=== PATIENT | female | born 1950 | race Caucasian/White ===

== ENCOUNTER 2017-06-15 08:08 | Inpatient (IN) | payer OTHER ==
[2017-05-24 10:33] VITALS: BMI 33.0
--- NOTE | 2017-05-24 11:14 | PAT Medication Instructions ---
Service Date May 24, 2017. Current Home Medication List Rgrypgm-Ibshafqhm-Anwm (Calcium Magnesium & Zinc), 2 TAB PO QAM Cholecalciferol (Vitamin D3), 1 TAB PO QAM Dicyclomine Hcl (Dicyclomine Hcl), 1 TAB PO BID PRN for PRN Diltiazem Hcl Ext Rel (Tiazac), 240 MG PO QPM Fish Oil (Angier-3), 1 CAP PO QAM Ibuprofen (Motrin), 400 MG PO TID PRN for Pain Lorazepam (Ativan), 1 MG PO TID PRN for Anxiety Losartan Potassium (Cozaar), 50 MG PO QAM Meloxicam (Mobic), 15 MG PO QAM Multivitamin (Multivitamin), 1 TAB PO QAM Omeprazole (Prilosec), 20 MG PO QAM Ospemifene (Osphena), 60 MG PO QAM Simvastatin (Zocor), 10 MG PO QPM Sumatriptan Succinate (Imitrex), 50 MG PO PRN PRN for Migraine Medication Instructions For Your Scheduled Surgery - Check with surgeon for instructions: Meloxicam (Mobic), 15 MG PO QAM Ibuprofen (Motrin), 400 MG PO TID PRN for Pain - Hold the following medications 2 weeks prior to surgery: Fish Oil (Angier-3), 1 CAP PO QAM - Hold the following medications the morning of surgery: Crqgrin-Zrxztfupd-Hrsr (Calcium Magnesium & Zinc), 2 TAB PO QAM Cholecalciferol (Vitamin D3), 1 TAB PO QAM Dicyclomine Hcl (Dicyclomine Hcl), 1 TAB PO BID PRN for PRN Losartan Potassium (Cozaar), 50 MG PO QAM Multivitamin (Multivitamin), 1 TAB PO QAM Ospemifene (Osphena), 60 MG PO QAM - Take the following medications the morning of surgery with a sip of water: Sumatriptan Succinate (Imitrex), 50 MG PO PRN PRN for Migraine (if needed) Omeprazole (Prilosec), 20 MG PO QAM Lorazepam (Ativan), 1 MG PO TID PRN for Anxiety (if needed) - Take the following medications as scheduled the night before surgery: Sumatriptan Succinate (Imitrex), 50 MG PO PRN PRN for Migraine (if needed) Simvastatin (Zocor), 10 MG PO QPM Lorazepam (Ativan), 1 MG PO TID PRN for Anxiety (if needed) Diltiazem Hcl Ext Rel (Tiazac), 240 MG PO QPM Dicyclomine Hcl (Dicyclomine Hcl), 1 TAB PO BID PRN for PRN (if needed) If you have any questions please call us at [phone] or [phone] or [phone]
[2017-05-24 11:39] LABS: BASO % 0.3 %; BASO ABS # 0.03 K/uL (0-0.2); EOS % 2.3 %; EOS ABS # 0.21 K/uL (0-0.5); IG# 0.02 K/uL (0.00-0.02); LYMPH % 34.7 %; LYMPH ABS # 3.11 K/uL (1.2-3.4); MEAN CELL VOLUME 93.4 fL (80-100); MEAN CORPUSCULAR HEMOGLOBIN 31.9 pg (25-34); MEAN CORPUSCULAR HGB CONC 34.1 g/dl (32-36); MEAN PLATELET VOLUME 9.6 fL (7.4-10.4); MONO ABS # 0.63 K/uL (0.11-0.59); NEUT % 55.5 %; NEUT ABS # 4.95 K/uL (1.4-6.5); PLATELET COUNT 327 K/uL (130-400); RED CELL DISTRIBUTION WIDTH CV 12.9 % (11.5-14.5); RED CELL DISTRIBUTION WIDTH SD 44.1 fL (36.4-46.3); WHITE BLOOD COUNT 8.95 K/uL (4.8-10.8)
[2017-05-24 11:46] LABS: INR 0.9 (0.9-1.1); PTT PATIENT 24.5 SECONDS (21.0-31.0)
--- NOTE | 2017-05-24 11:48 | DIAGNOSTIC IMAGING REPORT ---
CHEST 2 VIEWS ROUTINE CLINICAL HISTORY: Preoperative chest COMPARISON STUDY: No previous studies for comparison. FINDINGS: There is a thoracolumbar scoliosis. The heart is normal in size. There is tortuosity/ectasia of the ascending thoracic aorta. There is a retrocardiac opacity consistent with a hiatal hernia. There is no failure. There is no focal pulmonary consolidation. There are no pleural effusions.[ IMPRESSION: 1. No acute findings 2. Hiatal hernia 3. Tortuosity/ectasia of the ascending thoracic aorta Electronically signed by: Shawn Encarnacion M.D. 05/24/2017 11:46 AM Dictated Date/Time: 05/24/2017 11:46 AM
[2017-05-24 14:10] LABS: BLOOD UREA NITROGEN 16 mg/dl (7-18); CALCIUM 9.4 mg/dl (8.5-10.1); CARBON DIOXIDE 25 mmol/L (21-32); GLUCOSE 89 mg/dl (70-99); POTASSIUM 4.1 mmol/L (3.5-5.1); SODIUM 136 mmol/L (136-145)
--- NOTE | 2017-06-11 08:09 | HISTORY & PHYSICAL EXAMINATION ---
DATE OF ADMISSION: 06/15/2017 CHIEF COMPLAINT: Right knee pain. HISTORY OF PRESENT ILLNESS: The patient is a 66-year-old white female from [place] who presents for surgical treatment of her right knee. She got a long history of knee problems and her left knee replaced by Dr. Pop in 2010. Never really did great from that. She continues to be bothered by right knee pain and discomfort. She has global pain. It is really starting to limit her activities. She was planning on doing anything but feels like she cannot get around at all with the knee that she has. She cannot walk any significant distances. She has difficulty going up and down steps. She has been through extensive conservative treatment including injections and would like to proceed with surgical treatment. PAST MEDICAL HISTORY: 1. Hypertension. 2. Elevated cholesterol. 3. Sleep apnea with CPAP machine. 4. Anxiety/depression. 5. Obesity with BMI of 33. 6. Gastroesophageal reflux disease. 7. Low back pain/sciatica. PAST SURGICAL HISTORY: Include: 1. Removal of birthmark. 2. Tubal ligation. 3. Umbilical hernia repair. 4. Oophorectomy. 5. Left total knee replacement done in 2010. 6. Mohs surgery for basal cell skin cancer. ALLERGIES: ERYTHROMYCIN. CURRENT MEDICINES: Include: 1. Omeprazole 20 mg a day. 2. Losartan 50 mg a day. 3. Meloxicam 15 mg a day. 4. Osphena 60 mg for her hormone issues. 5. Multivitamin once a day. 6. Calcium. 7. Vitamin D3. 8. Fish oil. 9. [place] 3. 10. Diltiazem HCL ER 240 mg at bedtime. 11. Simvastatin 10 mg at night. 12. Lorazepam 1 mg 3 times a day. 13. Dicyclomine 20 mg twice a day. 14. Imitrex 50 mg p.r.n. 15. Benadryl p.r.n. 16. Ibuprofen p.r.n. 17. Calcium carbonate p.r.n. SOCIAL HISTORY: Significant for a 66-year-old female. She lives in [place]. She is . Does not smoke. FAMILY HISTORY: Noncontributory. REVIEW OF SYSTEMS: Negative for diabetes, neurologic problems, vascular problems, bleeding disorders. Denies any chest pain or shortness of breath. No history of DVT or PE. No known bleeding problems. PHYSICAL EXAMINATION: GENERAL: Reveals a healthy, pleasant middle-aged female. Looks to be in reasonably good health. HEENT: Benign. NECK: Supple. No lymphadenopathy. LUNGS: Clear to auscultation. HEART: Regular rate and rhythm. ABDOMEN: Soft, nontender, nondistended. EXTREMITIES: Grossly neurovascularly intact except as follows: Examination of the right knee reveals slight valgus alignment. Small knee effusion. Range of motion is 0-120. She does have significant patellofemoral crepitus. X-RAYS: X-rays of the right knee reviewed. It shows advanced tricompartmental DJD. She has tibial femoral subluxation. She has advanced patellofemoral arthritis with a significant patellar maltracking. There are no signs of left knee problems. ASSESSMENT: A 66-year-old female status post left knee replacement 6 years ago with persistent right knee pain, discomfort and disability. Unfortunately, she did not have a good experience with her left knee but has become more and more debilitated by right knee and would like to have it fixed. PLAN: We will take her to the operating room and do a right total knee replacement. The risks and benefits of this procedure were explained to the patient including but not limited to DVT, PE, , infection, neurological injury, vascular injury, bleeding problem, pain, limited range of motion, stiffness, failure to her relieve symptoms, incomplete relief of symptoms, need for further surgery in the future, fracture, leg length inequality, nerve palsy, persistent pain, etc. The patient understands and desires to proceed. Informed consent was obtained. She has a very difficult knee with significant patellofemoral maltracking which will be difficult to correct. We talked about the results and certainly there is no guarantee that this is going to take away all of her pain. She understands and would like to proceed. As far as discharge plans, she is planning to be discharged to home using the [facility] home health program. She will bring her CPAP machine to the hospital. She stopped her NSAIDs 2 weeks preop.
[2017-06-15] VITALS (8 sets, daily range): BP systolic 106–140; BP diastolic 60–91; PULSE 71–103; TEMP 36.5–36.8; O2SAT 94–98; Ht 157.5 cm; Wt 82.1 kg
[~2017-06-15] VITALS: Ht 157.5 cm; Wt 82.1 kg
[~2017-06-15 08:08] MED LIST: ACETAMINOPHEN 500 MG TAB PO SCH; ATROPINE SULFATE 0.1 MG/ML 5ML SYR IV PRN; ATV/1 PO; BUPIVACAINE 0.5 % 5 MG/1 ML PF 10ML VIAL ONE; BUPIVACAINE LIPOSOME 266 MG, BUPIVACAINE/EPINEPHRINE INJ 50 ML, SODIUM CHLORIDE 0.9% PF... INFIL SCH; CALC1TAB27 PO; CEFAZOLIN 2000MG IV PUSH 10 ML IV SCH; CHOL1000 PO; DICY20TA10 PO; DILT-115 PO; EpHEDrine SULFATE INJ 50 MG/ML AMP IV PRN; FAMOTIDINE 20 MG TAB PO SCH; GABAPENTIN 300 MG CAP PO SCH; HYDROmorphone INJ 2 MG/ML SYR/VIAL IV PRN; IBUP-1459 PO; LACTATED RINGER'S 1000ML 1,000 ML IV SCH; LACTATED RINGER'S 1000ML 500 ML IV SCH; LACTATED RINGER'S 1000ML IV SCH; LOSA50TA6 PO; MELO7.5T5 PO; METOCLOPRAMIDE HCL 10 MG TAB PO SCH; MULT-506 PO; OMEG10007 PO; ONDANSETRON INJ 2 MG/ML 2 ML VIAL IV PRN; OSPE1TAB2 PO; PHENYLEPHRINE 100MCG/ML 5ML SYR IV PRN; PRLSR20 PO; ROPIVACAINE 0.5% 5 MG/ML 30 ML VIAL ONE; SIMV10TA2 PO; SUMA50TA15 PO; TRANEXAMIC ACID INJ 1,000 MG in SYRINGE 0 ML IV SCH
--- NOTE | 2017-06-15 08:45 | History & Physical Bridge Note ---
H&P Re-Evaluation Bridge Note: I have examined the patient, reviewed the History & Physical and in the interval since the performance of the History & Physical I have noted the following changes of clinical significance: No changes noted
[2017-06-15] MEDS ORDERED: MIDAZOLAM HCL 1 MG/ML 2ML VIAL ONE ×3 (09:30→11:56)
[2017-06-15] MEDS ORDERED: BUPIVACAINE/EPINEPHRINE 0.25% 1:200,000 30 ML VIAL ONE (10:57)
[2017-06-15] MEDS ORDERED: SODIUM CHLORIDE 0.9% PF 50 ML VIAL ONE (10:57)
[2017-06-15] MEDS ORDERED: BUPIVACAINE LIPOSOME 1/3% 266 MG/20 ML VIAL INFIL ONE (10:57)
[2017-06-15] MEDS ORDERED: BACITRACIN 50000 UNIT VIAL ONE (10:57)
[2017-06-15] MEDS ORDERED: PROPOFOL IV EMULSION 10 MG/ML 20 ML VIAL IV ONE ×2 (11:20→12:25)
[2017-06-15] MEDS ORDERED: LIDOCAINE HCL 2% 2 ML VIAL (20MG/ML) ONE (11:20)
[2017-06-15] MEDS ORDERED: PHENYLEPHRINE 100MCG/ML 5ML SYR ONE (12:06)
--- NOTE | 2017-06-15 12:43 | [facility] Post Operative Brief Note ---
Immediate Operative Summary Operative Date Jun 15, 2017. Pre-Operative Diagnosis Right Knee Degenerative Joint disease Post-Operative Diagnosis Same as preop Procedure(s) Performed Right Total Knee Arthroplasty Surgeon Dr. Calvo Harness Installer Surgeon(s) David Baca PA-C Estimated Blood Loss 50 ml Findings Consistent with Post-Op Diagnosis Fluids (cc crystalloids) 1500 cc Specimens A. Right Knee Bone and Tissue Drains None Anesthesia Type MAC Spinal Regional Complication(s) none Disposition Accompanied Pt To Recover: no Disposition: Recovery Room / PACU
[2017-06-15] MEDS ORDERED: DICYCLOMINE HCL 20 MG TAB PO PRN (12:45)
[2017-06-15] MEDS ORDERED: SUMATRIPTAN SUCCINATE 50 MG TAB PO PRN (12:45)
[2017-06-15] MEDS ORDERED: HYDROmorphone INJ 0.5 MG/0.5 ML SYR IV PRN (12:45)
[2017-06-15] MEDS ORDERED: ONDANSETRON INJ 2 MG/ML 2 ML VIAL IV PRN (12:45)
[2017-06-15] MEDS ORDERED: ALUMINUM/MAGNESIUM/SIMETH (MAALOX MAX) 30 ML UDC PO PRN (12:45)
[2017-06-15] MEDS ORDERED: METOCLOPRAMIDE HCL INJ 5 MG/ML 2 ML VIAL IV PRN (12:45)
[2017-06-15] MEDS ORDERED: SILVER SULFADIAZINE 1% CR 50 GM JAR EXT PRN (12:45)
[2017-06-15] MEDS ORDERED: BISACODYL 10 MG SUPP PR PRN (12:45)
[2017-06-15] MEDS ORDERED: DiphenhydrAMINE HCL 50 MG/ML VIAL IV PRN (12:45)
[2017-06-15] MEDS ORDERED: MAGNESIUM HYDROXIDE SUSP 30 ML UDC PO PRN (12:45)
[2017-06-15] MEDS ORDERED: CEFAZOLIN IV 2,000 MG in DEXTROSE 5% 50ML 50 ML IV SCH (12:45)
[2017-06-15] MEDS ORDERED: ZOLPIDEM TARTRATE 5 MG TAB PO PRN (12:45)
--- NOTE | 2017-06-15 13:26 | DIAGNOSTIC IMAGING REPORT ---
RIGHT KNEE 2 VIEWS History: Right total knee arthroplasty. Degenerative arthritis. Postop. FINDINGS: The patient is status post a right total knee arthroplasty. The hardware is intact. No fracture or dislocation. Skin fifi are in place. IMPRESSION: Right total knee arthroplasty. No evidence for hardware complication. Electronically signed by: Naman Roblero M.D. 06/15/2017 1:24 PM Dictated Date/Time: 06/15/2017 1:23 PM
--- NOTE | 2017-06-15 14:06 | Anesthesiology Progress Note ---
Anesthesia Post Op Note Date & Time Jun 15, 2017 at 14:06 Vital Signs Pain Intensity: 0 Vital Signs Past 12 Hours Date Time Temp Pulse Resp B/P (MAP) Pulse Ox O2 Delivery O2 Flow Rate FiO2 06/15/17 13:30 36.5 82 16 116/77 (90) 98 Nasal Cannula 2.0 06/15/17 13:30 Nasal Cannula 2.0 06/15/17 13:10 36.8 81 16 133/79 99 Nasal Cannula 2 06/15/17 13:00 80 18 114/61 100 Nasal Cannula 2 06/15/17 12:50 36.8 86 20 103/59 99 Nasal Cannula 2 06/15/17 08:40 36.8 103 20 123/81 97 Room Air Notes Mental Status: alert / awake / arousable, participated in evaluation Pt Amnestic to Procedure: Yes Nausea / Vomiting: adequately controlled Pain: adequately controlled Airway Patency, RR, SpO2: stable & adequate BP & HR: stable & adequate Hydration State: stable & adequate Anesthetic Complications: no major complications apparent
--- NOTE | 2017-06-15 15:19 | PROGRESS NOTE ---
DATE: 06/15/2017 SUBJECTIVE: A 66-year-old white female postop from a right knee replacement. She is doing pretty well. Feels a little bit groggy and tired but pain is controlled. No chest pain or shortness of breath. Not feeling dizzy or lightheaded. OBJECTIVE: VITAL SIGNS: Temperature 36.5. Vital signs stable. GENERAL: Reveals a healthy pleasant middle-aged female. She is lying in bed, looks pretty comfortable. She is awake, alert and oriented. LUNGS: Clear to auscultation. HEART: Has a regular rate and rhythm. ABDOMEN: Soft, nontender, nondistended. EXTREMITIES: Grossly neurovascularly intact except as follows. Examination of the right leg reveals the leg to be well aligned. Dressing is clean, dry and intact. She can dorsiflex and plantarflex her foot and toes appropriately. She is neurologically intact. X-RAYS: X-rays of the right knee from recovery room were reviewed. It shows a right cemented posterior stabilized total knee arthroplasty. Components looked to be in good position. No signs of problems. ASSESSMENT: A 66-year-old female postop from a right knee replacement, doing well. Pain is controlled. She is neurologically intact. PLAN: 1. DVT prophylaxis including thigh high TEDs, SCDs, and aspirin twice a day. 2. PT, OT. Weightbearing as tolerated. Right total knee protocol. 3. Pain control, doing pretty well with current pain regimen. 4. IV antibiotics x24 hours. 5. Disposition: She is planning to be discharged to home likely with some home health once adequately recovered.
[2017-06-15] MEDS: D5W AND 1/2NSS + 20MEQ KCL 1,000 ML IV SCH (16:04)
[2017-06-15] MEDS: KETOROLAC TROMETHAMINE 15 MG/ML VIAL IV. SCH ×2 (16:05→21:23)
[2017-06-15] MEDS ORDERED: NURSING VERBAL MED ORDER ONE (16:45)
[2017-06-15] MEDS: FERROUS GLUCONATE 324 MG TAB PO SCH (17:45)
[2017-06-15] MEDS: CEFAZOLIN IV 2,000 MG in SYRINGE 5 ML IV SCH (18:50)
[2017-06-15] MEDS ORDERED: TRANEXAMIC ACID INJ 1,000 MG in SODIUM CHLORIDE 0.9% 100ML 100 ML IV ONE (19:30)
[2017-06-15] MEDS: LORAZEPAM 1 MG TAB PO PRN (21:23)
[2017-06-15] MEDS: DILTIAZEM HCL 120 MG EXT REL CAP PO SCH (21:24)
[2017-06-15] MEDS: SIMVASTATIN 10 MG TAB PO SCH (21:24)
[2017-06-15] MEDS: ACETAMINOPHEN 500 MG TAB PO SCH (21:31)
[2017-06-15] MEDS: SENNA 8.6 MG TAB PO SCH (21:51)
[2017-06-15] MEDS: DOCUSATE SODIUM 100 MG CAP PO SCH (21:51)
[2017-06-15] MEDS: ASPIRIN 325 MG ECTAB PO SCH (21:52)
[2017-06-16] VITALS (8 sets, daily range): BP systolic 107–147; BP diastolic 70–84; PULSE 76–94; TEMP 36.7–36.8; O2SAT 90–96
[2017-06-16] MEDS: D5W AND 1/2NSS + 20MEQ KCL 1,000 ML IV SCH ×2 (01:55→09:23)
[2017-06-16] MEDS: CEFAZOLIN IV 2,000 MG in SYRINGE 5 ML IV SCH (03:12)
[2017-06-16] MEDS: KETOROLAC TROMETHAMINE 15 MG/ML VIAL IV. SCH ×4 (03:30→21:48)
[2017-06-16] MEDS: LORAZEPAM 1 MG TAB PO PRN (05:08)
[2017-06-16] MEDS: ACETAMINOPHEN 500 MG TAB PO SCH ×3 (06:20→21:48)
[2017-06-16 06:52] LABS: HEMATOCRIT 33.2 % (37-47); HEMOGLOBIN 11.3 g/dL (12.0-16.0); MEAN CELL VOLUME 91.7 fL (80-100); MEAN CORPUSCULAR HEMOGLOBIN 31.2 pg (25-34); MEAN PLATELET VOLUME 9.6 fL (7.4-10.4); PLATELET COUNT 256 K/uL (130-400); RED CELL DISTRIBUTION WIDTH CV 12.7 % (11.5-14.5); RED CELL DISTRIBUTION WIDTH SD 42.9 fL (36.4-46.3); WHITE BLOOD COUNT 11.14 K/uL (4.8-10.8)
[2017-06-16 07:32] LABS: CREATININE 0.56 mg/dl (0.60-1.20); POTASSIUM 3.6 mmol/L (3.5-5.1)
[2017-06-16] MEDS: FERROUS GLUCONATE 324 MG TAB PO SCH ×3 (07:48→17:45)
[2017-06-16] MEDS: DOCUSATE SODIUM 100 MG CAP PO SCH ×2 (07:48→20:32)
[2017-06-16] MEDS: CHOLECALCIFEROL 400 INTER.UNIT TAB PO SCH (07:48)
[2017-06-16] MEDS: PANTOprazole SOD 40 MG TAB PO SCH (07:49)
[2017-06-16] MEDS: ASPIRIN 325 MG ECTAB PO SCH ×2 (07:49→20:32)
[2017-06-16] MEDS: MULTIVITAMIN TAB PO SCH (07:49)
[2017-06-16] MEDS: LOSARTAN POTASSIUM 50 MG TAB PO SCH (07:49)
--- NOTE | 2017-06-16 08:02 | OPERATIVE REPORT ---
DATE OF OPERATION: 06/15/2017 SURGEON: Donell Calvo MD. SENIOR SUPPORT ENGINEER: NATHAN Prince. PREOPERATIVE DIAGNOSIS: Right knee degenerative joint disease. POSTOPERATIVE DIAGNOSIS: Same. PROCEDURE PERFORMED: Right cemented posterior stabilized total knee arthroplasty. COMPLICATIONS: None. ESTIMATED BLOOD LOSS: 50 mL FLUID REPLACEMENT: 1500 mL crystalloid fluid replacement. TOURNIQUET TIME: 51 minutes at 300 mmHg. ANESTHESIA: Spinal with adductor canal block. DRAINS: None. SPECIMENS: Right knee sent for pathology. OPERATIVE INDICATIONS: The patient is a 66-year-old fairly active female who has had a long history of knee problems. She underwent left knee replacement about 7 years or so ago and really did not do real well from that. As a result, she has been putting up with a severely arthritic right knee for many years. Pain has just become more debilitating. X-rays revealed advanced right knee DJD with severe patellofemoral arthritis and maltracking in the patella. She elected to proceed with total knee arthroplasty. OPERATIVE FINDINGS: Operative findings reveal advanced right knee DJD. She had grade 4 [id number] disease in all 3 compartments, pretty severe in all 3 compartments. She had severe patellar maltracking with subluxation, almost dislocation of the patella. She had tibial femoral subluxation. She had diffuse osteopenia. She had osteophytes in all 3 compartments. OPERATIVE IMPLANTS: Operative implants consisted of: 1. A Biomet Vanguard size 60 right posterior stabilized femoral component. 2. A Biomet size 63 tibial tray. 3. A 12 mm posterior stabilized polyethylene insert. 4. A 28 x 8 all poly patella. OPERATIVE PROCEDURE: The patient taken to the operating room, identified and placed on the operating table in supine position. All contact areas were appropriately padded. IV antibiotics were provided by anesthesia team. A spinal anesthetic and adductor canal block had been provided in the holding area. Hair catheter was placed in sterile fashion. A right thigh tourniquet was then placed. The right lower extremity was then prepped and draped in usual sterile fashion. The right leg was elevated and exsanguinated with Esmarch and tourniquet was placed at 300 mmHg. An anterior approach to the right knee was then performed through a longitudinal incision centered over the patella. Sharp dissection was carried out through the subcutaneous tissues down to the level of the extensor mechanism. A medial parapatellar arthrotomy incision was made. Some subperiosteal dissection was carried out medially. The fat pad was resected from beneath the patellar tendon. The lateral patellofemoral ligament was released. Patella was everted and the knee was flexed. The osteophytes were taken off the distal femur. ACL and PCL were then released from the distal femur and the tibia subluxated anteriorly. The external tibial alignment jig was then placed in the anterior face of the tibia and adjusted 12 mm medially. Proximal tibial cut was made to remove about 2 mm of bone from the most deficient aspect of the medial tibial plateau. The bone was pretty osteopenic. The tibia was sized to a size 63. I did want to maximize tibial coverage due to osteopenia but I also wanted to be able to externally rotate the tibial tray to maximize patellar tracking. We tried to optimize both situations. Attention was then drawn to the femur. The distal femur was entered with a sharp drill. Intramedullary canal was suctioned. A right 5-degree valgus cutting guide was placed. Distal femoral cutting block was pinned in place. Distal femoral cut was made to take an additional 3 mm bone off the distal femur. The femur was then sized to a size 60. I did downsize this slightly in hopes of being able to lateralize the femoral component. The AP cutting block was pinned parallel to the epicondylar axis which was 5 degrees of external rotation. The anterior cut, anterior chamfer cut, posterior cut, posterior chamfer cuts were made. Box cutting guide was placed and adjusted slightly lateral and the box cut was made. The knee was flexed. The remnants of the medial and lateral menisci were excised. The osteophytes were taken off the posterior aspect of the femur. I did release the popliteus in order to equalize the flexion gaps. I also did a little release of the IT band to equalize the extension gap. The knee was then trialed and the 12 mm insert fit most appropriately. Attention was then drawn to the patella. The patella was cleaned of all soft tissues. Patella was severely worn. It measured about 17 mm in thickness and was cut down to 12. I did try to medialize the patellar button and prepared its size to size 28 and downsized it slightly to maximize medialization of the patellar button. The lug holes were drilled for the 28 patella. Lateral osteophyte was removed. The knee was taken through range of motion and patella tracked with no thumbs test. There was a tendency to tilt a little bit and subluxate just slightly in terminal flexion more than anything. In extension and 30 degrees of flexion, it was well centered. We elected to avoid to do anything until the tourniquet was down. All trial components were removed. Bone plug was placed in the distal femur to limit blood loss. A double batch of Palacos G cement was mixed. A right size 60 posterior stabilized femoral component, size 63 tibial tray, 12 mm posterior stabilized polyethylene insert and a 28 x 8 all poly patella then cemented in place. Knee was brought out into full extension until cement hardened. A final cement check was performed. The pericapsular tissues were injected with 100 mL of a combination of 20 mL of Exparel, 30 mL of normal saline, 50 mL of 0.25% Marcaine with epinephrine. The patient did receive 1 gram of tranexamic acid. The tourniquet was then let down for a tourniquet time of 51 minutes. Hemostasis was assured with use of electrocautery. The patella tended to tilt and sublux slightly most when in teminal flexion than anything. I did do a lateral release several centimeters lateral to the patella, beginning at the superior pole and extending to the tibial tray. I did not do a more extensive proximal release. I elected to accept this. I felt the patella was quite stable. Attention was then drawn toward closing. The wound was irrigated with copious amounts of pulsatile lavage solution. The extensor mechanism was then closed with a combination of #1 PDS suture and #1 Vicryl suture in a [id number] fashion. Extensor mechanism was checked and found to be intact. The subcutaneous tissues were then closed with 2-0 Dexon suture in a buried interrupted fashion. Skin was closed with skin fifi. Leg was then cleaned and dried, and a sterile dressing of Xeroform, 4 x 4's, sterile cast padding and Cory bandage was applied. The patient was then transferred to the recovery room in stable condition. The patient tolerated the procedure well with no complications. All needle and sponge counts were correct at the end of the operation. I attest to the content of the Intraoperative Record and any orders documented therein. Any exceptions are noted below. CHAUNCEY
[2017-06-16] MEDS ORDERED: NON-FORMULARY MEDICATION (Omeprazole (Prilosec) 20 MG) PO SCH (09:00)
[2017-06-16] MEDS ORDERED: CALCIUM MAGNESIUM ZINC PO SCH (09:00)
[2017-06-16] MEDS ORDERED: MULTIVITAMIN TAB PO SCH (09:00)
[2017-06-16] MEDS ORDERED: ASPEC325 PO (09:17)
[2017-06-16] MEDS ORDERED: ULT50X PO (09:17)
[2017-06-16] MEDS ORDERED: ACET-24 PO (09:17)
--- NOTE | 2017-06-16 09:28 | PROGRESS NOTE ---
DATE: 06/16/2017 SUBJECTIVE: A 66-year-old white female postop day #1 from right knee replacement. She is doing pretty well. Knee is sore but manageable. No chest pain or shortness of breath. Not feeling dizzy or lightheaded. OBJECTIVE: VITAL SIGNS: Temperature is 36.7. Vital signs stable. GENERAL: Reveals a pleasant, middle-aged female. She is sitting up in her bedside chair and looks pretty comfortable. EXTREMITIES: Examination of the right leg reveals the dressing to be in place. Just a trace bit of bloody drainage. She can dorsiflex and plantarflex her foot appropriately. She is neurologically intact. LABORATORY DATA: Hemoglobin 11.3. Hematocrit 33.2. Electrolytes are stable. ASSESSMENT: A 66-year-old white female postop day #1 from right knee replacement, doing pretty well. Pain is controlled. She is neurologically intact. PLAN: 1. DVT prophylaxis including thigh-high TEDs, SCDs, and aspirin twice a day. 2. PT/OT. Weightbearing as tolerated. Right total knee protocol. 3. Pain control, doing well with current pain regimen. 4. Disposition: Plan to discharge to home once adequately recovered.
[2017-06-16] MEDS: TRAMADOL HCL 50 MG TAB PO PRN (15:05)
[2017-06-16] MEDS: SIMVASTATIN 10 MG TAB PO SCH (20:34)
[2017-06-16] MEDS: SENNA 8.6 MG TAB PO SCH (20:34)
[2017-06-16] MEDS: DILTIAZEM HCL 120 MG EXT REL CAP PO SCH (20:34)
--- NOTE | 2017-06-16 20:37 | Discharge Instructions ---
Discharge Instructions Date of Service Jun 16, 2017. Admission Reason for Admission: Right Knee Degenerative Joint Disease Discharge Discharge Diagnosis / Problem: Right Knee Replacement Discharge Goals Goal(s): Decrease discomfort, Improve function, Increase independence, Improve disease control, Therapeutic intervention Activity Recommendations Activity Limitations: per Instructions/Follow-up section Weightbearing Status: Right weightbearing . Instructions / Follow-Up Instructions / Follow-Up ACTIVITY RECOMMENDATIONS: Physical Therapy: * You will go to physical therapy three times each week for four to six weeks after your surgery in order to regain your knee range of motion and to retrain your knee to work properly. * It is just as important to make sure you are getting your knee perfectly straight as it is to regain your knee bend. * Taking a pain pill an hour before therapy can help you have a more productive and comfortable therapy session. Home Exercise: * You were shown a series of exercises (heel props, heel slides, etc.) in the hospital. Do these exercises three to four times each day including the exercises you were shown in physical therapy. Walking: * Get up and walk several times each day. For the first four weeks, try not to stand or walk for more than one hour at a time. If you do stand or walk for more than one hour, you will not hurt anything, but your knee and leg will likely swell. * As you feel comfortable, you may change from the walker or crutches to a cane and then to independent walking. MEDICATIONS: New Medicine: * You will likely be taking one or more of these medications: 1. Tramadol - A quick and shorter-acting pain medication. Take one to two tablets every four to six hours to lessen your pain. 2. Aspirin - Thins your blood to lessen the chance of forming a blood clot. * The most common side effects of pain medicine and iron are nausea and constipation. If nausea or constipation is too much of a problem or if you have any questions about your new medicines or doses, call [facility] at . We will try to help you manage these issues. VERY IMPORTANT TO READ AND REVIEW" Pain: * The immediate post-operative period after knee replacement surgery is often quite painful. * You are given a prescription for pain medicine. You should take it, as directed, when you need it, especially before physical therapy and before going to bed. Pain that interferes with sleep is very common and can last several months. * You will likely need pain medicine for the first four to six weeks. It will not stop all of the pain. The pain will lessen and as you feel better, you may change to milder pain medicine such as Tylenol. * The most common side effects of pain medicine are nausea and constipation, so don't take more than you need. SPECIAL CARE INSTRUCTIONS: TEDs/Elastic Stockings: * The white elastic stockings help limit swelling and prevent blood clots from forming in your legs. The more you wear them, the more they work. * Wear them for six weeks after knee replacement surgery and four weeks after partial knee replacement. Prevention of Infection: * Take antibiotics one hour before any dental cleaning, dental work, urological procedure, gastrointestinal procedure or any invasive surgery in order to prevent your new joint from getting infected. * You may get the antibiotics from the doctor performing the procedure or you may call our office at before and we will call in a prescription to the pharmacy of your choice. Things to Watch For: * Drainage from the incision site that occurs more than one week after your surgery. * Severely increased knee/leg pain or swelling. * Increased redness at the incision site. * Fever above 102 degrees Fahrenheit. * Unusual chest pain or shortness of breath. * Unusual pain or burning with urination. Call [facility] at with any of the above problems or if you have any questions about your medicines or recovery. FOLLOW UP VISIT: Make an appointment to see your doctor for approximately two weeks after surgery for a progress check and staple removal by calling the office at . Current Hospital Diet Patient's current hospital diet: Regular Diet Discharge Diet Recommended Diet: Regular Diet Procedures Procedures Performed: Right Total Knee Arthroplasty Pending Studies Studies pending at discharge: no Medical Emergencies . Who to Call and When: Medical Emergencies: If at any time you feel your situation is an emergency, please call [phone] immediately. . Non-Emergent Contact Non-Emergency issues call your: Surgeon . "Provider Documentation" section prepared by Donell Calvo. . VTE Core Measure Inpt VTE Proph given/why not?: Other Anticoagulation, T.E.D. Stockings, SCD's
[2017-06-17] MEDS: KETOROLAC TROMETHAMINE 15 MG/ML VIAL IV. SCH ×2 (03:46→09:22)
[2017-06-17] MEDS: ACETAMINOPHEN 500 MG TAB PO SCH (05:46)
[2017-06-17 06:09] VITALS: BP 117/75; PULSE 88; TEMP 36.8; O2SAT 96
[2017-06-17] MEDS: MULTIVITAMIN TAB PO SCH (07:18)
[2017-06-17] MEDS: LOSARTAN POTASSIUM 50 MG TAB PO SCH (07:18)
[2017-06-17] MEDS: CHOLECALCIFEROL 400 INTER.UNIT TAB PO SCH (07:18)
[2017-06-17] MEDS: PANTOprazole SOD 40 MG TAB PO SCH (07:18)
[2017-06-17] MEDS: ASPIRIN 325 MG ECTAB PO SCH (07:19)
[2017-06-17] MEDS: DOCUSATE SODIUM 100 MG CAP PO SCH (07:19)
[2017-06-17] MEDS: FERROUS GLUCONATE 324 MG TAB PO SCH (07:20)
[2017-06-17] MEDS: TRAMADOL HCL 50 MG TAB PO PRN (07:24)
[2017-06-17] MEDS: LORAZEPAM 1 MG TAB PO PRN (07:24)
--- NOTE | 2017-06-17 07:53 | PROGRESS NOTE ---
DATE: 06/17/2017 SUBJECTIVE: A 66-year-old white female postop day 2 from right knee replacement. She is doing pretty well. Pain is controlled. No chest pain or shortness of breath. She had a bowel movement yesterday. Doing better from that standpoint. OBJECTIVE: VITAL SIGNS: Temperature 36.8. Vital signs stable. GENERAL: A pleasant, middle-aged female. She is sitting up at her bedside chair and looks comfortable. EXTREMITIES: Examination of the right leg reveals the dressing to be clean, dry and intact. She can dorsiflex and plantarflex her foot appropriately. She is neurologically intact. Calf is soft and supple. ASSESSMENT: A 66-year-old white female postop day 2 from right knee replacement, doing pretty well. Pain is controlled. She is neurologically intact. PLAN: 1. DVT prophylaxis including thigh-high TEDs, SCDs, and aspirin twice a day. 2. PT/OT to weightbear as tolerated. Right total knee protocol. 3. Pain control, doing reasonably well with current pain regimen. 4. Disposition: Plan to discharge to home with some home health likely later today.
[2017-06-17 09:00] VITALS: BP 117/75; PULSE 88; TEMP 36.8; O2SAT 96
--- NOTE | 2017-06-23 10:37 | DISCHARGE SUMMARY ---
ADMITTING PHYSICIAN AND SURGEON: Donell Calvo MD. ADMITTING DIAGNOSIS: Right knee degenerative joint disease. SURGERY PERFORMED: Right total knee arthroplasty. SECONDARY DIAGNOSES: Hypertension, elevated cholesterol, sleep apnea, anxiety, depression, obesity, gastroesophageal reflux disease, low back pain and sciatica. HISTORY AND PHYSICAL EXAM: Well documented in the patient's chart. CONSULTS: None obtained. HOSPITAL COURSE: The patient was admitted on 06/15/2017, underwent total knee arthroplasty, tolerated the procedure well. There were no complications. She was transferred to the PACU postoperatively and later to the orthopedic floor for further care. She was given Ancef for antibiotic prophylaxis, SHERWIN stockings, SCDs and aspirin for DVT prophylaxis. Hemoglobin, hematocrit and vital signs were monitored during her hospital stay and remained stable. She developed some mild postoperative anemia, did not require any blood transfusions. There were no complications. By postoperative day 2, she was tolerating a regular diet. Pain was controlled with oral pain medicine. She was participating in physical therapy. On postop day 2, she was discharged home and set up with home health services. She was given printed discharge instructions including new prescriptions for extra strength Tylenol, aspirin and tramadol. Continue her home medications. Continue physical therapy, weightbearing as tolerated, SHERWIN stockings. Follow up in 10-12 days or sooner if there are problems or concerns.
== END 2017-06-17 10:35 | disposition home health service (06) | DRG 470 ==
LOC: C.ACU 08:08 → C.3E 08:35 → ENRESERV 13:02
PROVIDERS: ADMIT Orthopaedic Surgery Sports Medicine; ATTEND Orthopaedic Surgery Sports Medicine
PROC: 0SRC0J9 Replacement of Right Knee Joint with Synthetic Substitute, Cemented, Open Approach (ICD-10-PCS; principal; 2017-06-15 10:45)
DX: M17.11 Unilateral primary osteoarthritis, right knee (principal); Z96.652 Presence of left artificial knee joint; I10 Essential (primary) hypertension; E78.5 Hyperlipidemia, unspecified; G47.30 Sleep apnea, unspecified; E66.9 Obesity, unspecified; Z68.33 Body mass index [BMI] 33.0-33.9, adult; K21.9 Gastro-esophageal reflux disease without esophagitis; Z85.828 Personal history of other malignant neoplasm of skin; Z88.5 Allergy status to narcotic agent; Z88.1 Allergy status to other antibiotic agents; Z88.8 Allergy status to other drugs, medicaments and biological substances

== ENCOUNTER 2020-12-20 10:58 | Observation (INO) ==
--- NOTE | 2020-11-07 11:40 | PAT Medication Instructions ---
Medication Instructions Date of Service November 07, 2020 Home Medications aspirin 81 mg tablet,delayed release 81 mg PO HS celecoxib 200 mg capsule 200 mg PO BID cholecalciferol (vitamin D3) 25 mcg (1,000 unit) capsule 25 mcg PO QAM diltiazem HCl 240 mg capsule,extended release 24 hr 240 mg PO QAM losartan 50 mg tablet 50 mg PO QAM omega-3 fatty acids 1,000 mg capsule 1,000 mg PO QAM omeprazole 20 mg capsule,delayed release 20 mg PO QAM Calcium + D 1 tab PO QAM dicyclomine 10 mg PO BID PRN diphenhydramine HCl [Benadryl] 25 mg PO TID PRN lorazepam 1 mg PO TID PRN losartan 25 mg PO HS multivitamin 1 cap PO QAM simvastatin 10 mg PO HS sumatriptan succinate [Imitrex] 50 mg PO DAILY PRN ASK your surgeon for instructions celecoxib 200 mg capsule 200 mg PO BID ASK your prescriber and surgeon aspirin 81 mg tablet,delayed release 81 mg PO HS STOP taking 2 weeks before surgery (or as soon as possible if surgery is within 2 weeks) omega-3 fatty acids 1,000 mg capsule 1,000 mg PO QAM DO NOT take the morning of surgery cholecalciferol (vitamin D3) 25 mcg (1,000 unit) capsule 25 mcg PO QAM losartan 50 mg tablet 50 mg PO QAM Calcium + D 1 tab PO QAM dicyclomine 10 mg PO BID PRN diphenhydramine HCl [Benadryl] 25 mg PO TID PRN multivitamin 1 cap PO QAM Take morning of surgery With a small sip of water, OTHERWISE NOTHING TO EAT OR DRINK AFTER MIDNIGHT: diltiazem HCl 240 mg capsule,extended release 24 hr 240 mg PO QAM omeprazole 20 mg capsule,delayed release 20 mg PO QAM lorazepam 1 mg PO TID PRN (if needed) sumatriptan succinate [Imitrex] 50 mg PO DAILY PRN (if needed) Take evening before surgery dicyclomine 10 mg PO BID PRN (if needed) diphenhydramine HCl [Benadryl] 25 mg PO TID PRN (if needed) lorazepam 1 mg PO TID PRN (if needed) losartan 25 mg PO HS simvastatin 10 mg PO HS sumatriptan succinate [Imitrex] 50 mg PO DAILY PRN (if needed) Other Notes If you have any questions please call us at [phone] or [phone] or [phone] or [phone]
--- NOTE | 2020-11-13 10:59 | Anesthesiology Consultation ---
Date of Service November 13, 2020 Assessment & Plan (1) Encounter for pre-operative examination: Chart Review Chart Review: Acceptable Risk for Surgery (pending preop Covid testing results ) and Patient seen in Pre Admission Testing Per PAT appointment 11/13/2020, pt traveled to [place] to go camping with family- returned 10/30/20. Does not wear mask- pt is vaccinated. No known Covid positive contacts or Covid related symptoms. No known Covid infection in the past 90 days. Preop Covid testing scheduled 12/17/20= will await results. Educated on importance of self quarantining, social distancing and wearing mask in public both for the patient after Covid testing done Teaching & Discussion Pre-Anesthesia Teaching/Discussion Notes: Instructed NPO after midnight before surgery,except medications with 15 cc of water. Medication instructions provided according to the [facility] guidelines. History Surgery Operation Date: 12/20/20 07:00 Proposed Procedures p Left Total Shoulder Arthroplasty Versus - Marcial Morales DO s Total Shoulder Arthroplasty Reverse - Marcial Morales DO Height/Weight Height: 5 ft 1 in Weight: 83.1 kg Allergies Allergy/AdvReac Type Severity Reaction Status Date / Time oxycodone Allergy Mild nausea Unverified 11/01/20 10:53 Cipro AdvReac Mild GI UPSET Verified 06/15/17 08:46 ciprofloxacin AdvReac Mild GI UPSET Verified 11/01/20 10:53 erythromycin base AdvReac Mild GI UPSET Verified 11/01/20 10:53 metronidazole AdvReac Mild GI UPSET Verified 11/01/20 10:53 Medications Home Medications Medication Instructions Recorded Confirmed Last Taken aspirin 81 mg tablet,delayed 81 mg PO HS 05/31/19 11/01/20 Unknown release celecoxib 200 mg capsule 200 mg PO BID 03/05/20 11/01/20 Unknown cholecalciferol (vitamin D3) 25 25 mcg PO QAM 03/05/20 11/01/20 Unknown mcg (1,000 unit) capsule diltiazem HCl 240 mg 240 mg PO QAM 03/05/20 11/01/20 Unknown capsule,extended release 24 hr losartan 50 mg tablet 50 mg PO QAM 03/05/20 11/01/20 Unknown omega-3 fatty acids 1,000 mg 1,000 mg PO QAM 03/05/20 11/01/20 Unknown capsule omeprazole 20 mg capsule,delayed 20 mg PO QAM 03/05/20 11/01/20 Unknown release Calcium + D 1 tab PO QAM 11/01/20 11/01/20 Unknown dicyclomine 10 mg PO BID PRN 11/01/20 11/01/20 Unknown diphenhydramine HCl [Benadryl] 25 mg PO TID PRN 11/01/20 11/01/20 Unknown lorazepam 1 mg PO TID PRN 11/01/20 11/01/20 Unknown losartan 25 mg PO HS 11/01/20 11/01/20 Unknown multivitamin 1 cap PO QAM 11/01/20 11/01/20 Unknown simvastatin 10 mg PO HS 11/01/20 11/01/20 Unknown sumatriptan succinate [Imitrex] 50 mg PO DAILY PRN 11/01/20 11/01/20 Unknown Past Medical History Medical History Anxiety Basal cell carcinoma S/p removal; Mohs surgery GERD (gastroesophageal reflux disease) Well controlled and stable History of COVID-19 07/2019 ache, headache, felt like flu and no problems at present Hyperlipidemia Hypertension Migraine Osteoarthritis Scoliosis Sleep apnea cpap Exercise / Class Metabolic Activity II 4-5 Yardwork/Stairs/Walk up hill (one flight of stairs - no chest pain or SOB ) Past Family History Family History Uncle Cancer Other No family history of adverse response to anesthesia No family history of bleeding disorder Past Surgical History Surgical History History of bilateral tubal ligation History of surgery celia removal History of surgery left ovary & tube. History of total knee replacement (TKR) Right and Left History of umbilical hernia repair Past Anesthesia History No Hx of Anesthesia Complications and No Family Hx of Anesthesia Complications History of PONV No Hx of PONV and No Hx of Motion Sickness Social History Smoking Status: Never smoker Do You Dip or Chew Tobacco: No Hx Alcohol Use: Yes alcohol intake frequency: a few times a month Hx Substance Use: No substance use type: does not use Review of Systems Hx of blood transfusion at 6 months of age- pt was RH positive and mother was RH negative Patient denies chest pain, shortness of breath, dyspnea on exertion, cough, wheezing, palpitations. No hx of seizures, stroke, VA. No hx of blood clots. Physical Exam Vital Signs VITALS BP 136/85 P 79 TEMP 98.2 SP02 95% RESP 16 Constitutional no acute distress ENMT Mouth: no TMJ clicking Thyromental Distance: > or= 3.5 Finger Breadths (3.5) Mallampati Class: II Crowns to molars Neck + limited neck extension (mild ) Respiratory normal respiratory effort; no respiratory distress Auscultation: lungs clear to auscultation bilaterally; no wheezes Cardiovascular Rate/Rhythm: regular rate and regular rhythm Heart Sounds: no murmur Vessels: no carotid bruit Musculoskeletal Spine: no pain with cervical ROM Extremities: extremities normal to inspection Psychiatric Orientation: alert Lab Results Anesthesia Preop Results Results Anesthesia Widget: WBC 8.35 K/uL (4.8-10.8) 11/13/20 Hgb 13.5 g/dL (12.0-16.0) 11/13/20 Hct 41.6 % (37-47) 11/13/20 Plt 428 K/uL (130-400) H 11/13/20 PT 9.7 Seconds (9.0-12.0) 11/13/20 PTT 25.6 Seconds (21.0-31.0) 11/13/20 INR 1.0 (0.9-1.1) 11/13/20 Blood Type O Positive 11/13/20 Antibody Screen NEGATIVE 11/13/20 Testing Laboratory Results 11/04/20= SODIUM: 138 POTASSIUM: 4.3 CHLORIDE: 106 CO2: 26 BUN: 21 CREATININE: 0.6 GLUCOSE: 102 Electrocardiogram Date: 03/01/20 Findings: + NSR @ (93 bpm) Rightward axis. Otherwise normal EKG. Chest X-Ray Date: 11/13/20 Findings: + NAD No pneumothorax. No pleural effusions. Small linear density within the left lung base favor scarring or atelectasis. Otherwise, the lungs are clear. There is a large hiatus hernia. The cardiac silhouette is enlarged. Moderate S-shaped scoliosis of the thoracolumbar spine. Severe osteoarthritis within the left glenohumeral joint Echocardiogram Date: 02/29/20 EF: 55% LV Function: normal Other Findings: + diastolic dysfunction (Grade 1) Valvular Disease: + no significant valvular disease Stress Test Date: 02/29/20 Type: exercise Stress EKG was negative for myocardial ischemia at 90% of MPHR. Low level of exercise achieved. No angina reproduced with exercise. 7 METS achieved.
--- NOTE | 2020-12-19 07:12 | History & Physical Report ---
Date of Service December 19, 2020 Assessment & Plan (1) Osteoarthritis of left shoulder: We will proceed with a left reverse shoulder arthroplasty. Postoperatively she will be placed in a sling and kept overnight in the hospital for postoperative medical management. She plans to go to [facility] in [place] upon discharge. History of Present Illness Chief Complaint: Advanced osteoarthritis of the left shoulder. Primary Care Provider: Rishi Kang MD Alejandra is a pleasant 70-year-old female who is been doing with chronic worsening left shoulder pain. X-rays and clinical examination have been diagnostic for advanced osteoarthritis of the left shoulder. I be giving her injections for years. Her symptoms are getting worse. X-rays and CT scan of her shoulder show advanced osteoarthritis with some wear of the glenoid. After failing conservative treatment, she has elected to proceed with a left reverse shoulder arthroplasty.. Allergies Allergy/AdvReac Type Severity Reaction Status Date / Time oxycodone Allergy Mild nausea Unverified 11/01/20 10:53 Cipro AdvReac Mild GI UPSET Verified 06/15/17 08:46 ciprofloxacin AdvReac Mild GI UPSET Verified 11/01/20 10:53 erythromycin base AdvReac Mild GI UPSET Verified 11/01/20 10:53 metronidazole AdvReac Mild GI UPSET Verified 11/01/20 10:53 Home Medications Medication Instructions Recorded Confirmed Type aspirin 81 mg tablet,delayed 81 mg PO HS 05/31/19 11/01/20 History release celecoxib 200 mg capsule (Celebrex) 200 mg PO BID 03/05/20 11/01/20 History cholecalciferol (vitamin D3) 25 25 mcg PO QAM 03/05/20 11/01/20 History mcg (1,000 unit) capsule diltiazem HCl 240 mg 240 mg PO QAM 03/05/20 11/01/20 History capsule,extended release 24 hr losartan 50 mg tablet 50 mg PO QAM 03/05/20 11/01/20 History omega-3 fatty acids 1,000 mg 1,000 mg PO QAM 03/05/20 11/01/20 History capsule (Fish Oil Concentrate) omeprazole 20 mg capsule,delayed 20 mg PO QAM 03/05/20 11/01/20 History release Calcium + D 1 tab PO QAM 11/01/20 11/01/20 History dicyclomine 10 mg capsule 10 mg PO BID PRN 11/01/20 11/01/20 History diphenhydramine HCl 25 mg capsule 25 mg PO TID PRN 11/01/20 11/01/20 History (Benadryl) lorazepam 1 mg tablet 1 mg PO TID PRN 11/01/20 11/01/20 History losartan 25 mg tablet 25 mg PO HS 11/01/20 11/01/20 History multivitamin 1 cap PO QAM 11/01/20 11/01/20 History simvastatin 10 mg tablet 10 mg PO HS 11/01/20 11/01/20 History sumatriptan succinate 50 mg tablet 50 mg PO DAILY PRN 11/01/20 11/01/20 History (Imitrex) Past Med/Surg History Medical History Anxiety Basal cell carcinoma S/p removal; Mohs surgery GERD (gastroesophageal reflux disease) Well controlled and stable History of COVID-19 07/2019 ache, headache, felt like flu and no problems at present Hyperlipidemia Hypertension Migraine Osteoarthritis Scoliosis Sleep apnea cpap Surgical History History of bilateral tubal ligation History of surgery celia removal History of surgery left ovary & tube. History of total knee replacement (TKR) Right and Left History of umbilical hernia repair Family History Uncle Cancer Other No family history of adverse response to anesthesia No family history of bleeding disorder Social History Smoking Status: Never smoker Second Hand Exposure: No; Hx Alcohol Use: Yes Hx Substance Use: No Preferred Language: Chinese Communication Ability: Effective Block Setter [place] Required: No Beliefs That Will Affect Care: None Current Living Situation: Spouse Feels Safe at Home: Yes Assistive Devices: Glasses Review of Systems All systems reviewed & are unremarkable except as noted in HPI & below. Physical Exam Physical examination of her left shoulder, she has decreased range of motion. She has 5 5 motion of the full can test and external rotation. She has crepitus throughout range of motion.. Constitutional WD/WN, vitals as above Eyes PERRL, conjunctivae normal, anicteric sclerae ENMT external ear and nose normal, oropharynx normal Neck trachea midline, no thyromegaly Respiratory normal respiratory effort Cardiovascular RRR, no murmur, no edema Gastrointestinal (Abdomen) normal bowel sounds, soft, nontender, no hepatosplenomegaly Psychiatric A+Ox3, euthymic affect Results & Data Results & Data Laboratory Results . Diagnostic Findings X-rays of the left shoulder show advanced osteoarthritis with joint space narrowing, osteophyte formation, and axam-vi-rodo articulation. There is some posterior and superior wear of the glenoid.. PG Care Time/CCT Total # of Minutes Spent Total Time Spent with Patient: Total time spent is greater than 50% in coordination of care (as documented) at patient's floor/unit and/or counseling patient: Coding Level of Care Code None Diagnoses Osteoarthritis of left shoulder M19.012
[~2020-12-20 10:58] MED LIST changes: -ATROPINE SULFATE 0.1 MG/ML 5ML SYR IV PRN; -ATV/1 PO; -BUPIVACAINE LIPOSOME 266 MG, BUPIVACAINE/EPINEPHRINE INJ 50 ML, SODIUM CHLORIDE 0.9% PF... INFIL SCH; -CALC1TAB27 PO; -CEFAZOLIN 2000MG IV PUSH 10 ML IV SCH; -CHOL1000 PO; -DICY20TA10 PO; -DILT-115 PO; -EpHEDrine SULFATE INJ 50 MG/ML AMP IV PRN; -HYDROmorphone INJ 2 MG/ML SYR/VIAL IV PRN; -IBUP-1459 PO; -LACTATED RINGER'S 1000ML 1,000 ML IV SCH; -LACTATED RINGER'S 1000ML 500 ML IV SCH; -LACTATED RINGER'S 1000ML IV SCH; -LOSA50TA6 PO; +LR 15ML/HR IV SCH; +LR 60ML/HR IV SCH; -MELO7.5T5 PO; -METOCLOPRAMIDE HCL 10 MG TAB PO SCH; -MULT-506 PO; -OMEG10007 PO; -ONDANSETRON INJ 2 MG/ML 2 ML VIAL IV PRN; -OSPE1TAB2 PO; -PHENYLEPHRINE 100MCG/ML 5ML SYR IV PRN; -PRLSR20 PO; -ROPIVACAINE 0.5% 5 MG/ML 30 ML VIAL ONE; +ROPIVACAINE 0.5% HCL/PF 150 MG, BUPIVACAINE 0.75% MPF 20 ML, EPINEPHrine 30MG/30ML (OR ... INFIL SCH; -SIMV10TA2 PO; -SUMA50TA15 PO; +TRANEXAMIC ACID 1,000 MG **IV Intra-op IV SCH; +TRANEXAMIC ACID 1,000 MG **IV Pre-op IV SCH; -TRANEXAMIC ACID INJ 1,000 MG in SYRINGE 0 ML IV SCH; +ceFAZolin 2000MG 2,000 MG/15 ML SYR IV SCH; +dexAMETHasone 4 MG TAB PO SCH
[2020-12-20] MEDS ORDERED: ORTHO JOINT ANESTHETIC ONE (12:42)
[2020-12-20] MEDS ORDERED: ONDANSETRON INJ 2 MG/ML 2 ML VIAL ONE (12:43)
[2020-12-20] MEDS ORDERED: LIDOCAINE 2% 2 ML VIAL/AMP(20MG/ML) INFIL ONE (12:43)
[2020-12-20] MEDS ORDERED: fentaNYL citrate 100 MCG/2 ML VIAL ONE ×2 (12:43→13:53)
[2020-12-20] MEDS ORDERED: MIDAZOLAM HCL 1 MG/ML 2ML VIAL ONE (12:43)
[2020-12-20] MEDS ORDERED: PROPOFOL IV EMULSION 10 MG/ML 20 ML VIAL IV ONE (12:43)
[2020-12-20] MEDS ORDERED: ROCURONIUM BROMIDE 10 MG/ML 5 ML VIAL IV ONE (12:43)
[2020-12-20] MEDS ORDERED: DEXAMETHASONE SOD INJ 4 MG/ML VIAL ONE (12:43)
--- NOTE | 2020-12-20 12:48 | History & Physical Bridge Note ---
Date of Service December 20, 2020 History & Physical Bridge Note I have examined the patient, reviewed the History & Physical and in the interval since the performance of the History & Physical I have noted the following changes of clinical significance: no changes noted
[2020-12-20] MEDS ORDERED: ONDANSETRON INJ 2 MG/ML 2 ML VIAL IV PRN ×2 (12:57→16:18)
[2020-12-20] MEDS ORDERED: ATROPINE SULFATE 0.1 MG/ML 10ML SYR IV PRN (12:57)
[2020-12-20] MEDS ORDERED: fentaNYL citrate 100 MCG/2 ML VIAL IV PRN (12:57)
[2020-12-20] MEDS ORDERED: HYDROmorphone INJ 2 MG/ML SYR/VIAL IV PRN (12:57)
[2020-12-20] MEDS ORDERED: ePHEDrine sulfate 50 MG/ML AMP IV PRN (12:57)
--- NOTE | 2020-12-20 14:49 | Operative Report ---
PG Post Operative Report Pre & Post Diagnosis Operation Date: 12/20/20 13:20 Pre-Op Diagnosis: Cuff arthropathy of the left shoulder Post-Op Diagnosis: Cuff arthropathy of the left shoulder I identified the patient and participated in the time-out.: Yes Procedure Operation Date: 12/20/20 13:20 Actual Procedures Left reverse shoulder arthroplasty with open biceps tenodesis as a distinct and separate procedure (modifier 59) Surgeon Marcial Morales DO [employer] Set Up Technician Marcial Lee PAC Estimated Blood Loss 300 Findings Consistent with Post-Op Diagnosis Specimens Left humeral head Complications none Disposition Disposition: Recovery Room Indications Alejandra is a pleasant 70-year-old female who is been dealing with chronic worsening left shoulder pain. X-rays and clinical examination were diagnostic for cuff arthropathy of the left shoulder. After failing conservative treatment, she elected proceed with a left reverse shoulder arthroplasty. Description of Procedure A CPT code modifier 59: The long head of the biceps tendon was enlarged and inflamed consistent with tendinopathy. A tenodesis was opted. This was a separate and distinct portion of the procedure. For these reasons, a CPT code modifier 59 will be added to this case. Implants used: I used a [employer] Comprehensive reverse total shoulder arthroplasty system with a size 8 press fit micro humeral stem, a +3 offset humeral tray and a standard humeral bearing, a 25 mm large augment baseplate with a 6.5 mm central screw and superior and inferior locking screws, and a size 40 mm eccentric glenosphere. Alejandra arrived at [facility] for the above procedure. She was seen in the preoperative holding area and the operative extremity was identified and signed. She was given a preoperative antibiotic, TXA, and an interscalene nerve block. She was taken back to the operating room, laid on table in supine position, and put under general anesthesia. She was then put into the ronaldo chchair position. The shoulder was then prepped and draped in sterile fashion. A timeout was done and the patient and the operative extremity was properly identified. A deltopectoral approach was used. Dissection was taken down through the fascia and the deltoid was retracted laterally and the conjoined tendon was retracted medially. The anterior shoulder was exposed. The biceps groove was opened up and the biceps tendon was examined extensively. The biceps tendon demonstrated enlargement and inflammatory changes consistent with longstanding inflammation in the context of osteoarthritis and cuff arthropathy. The long head of the biceps tendon was then tenodesed to the upper border of the pectoralis major. This was a separate and distinct portion of the procedure. The subscapularis was then directly released off the lesser tuberosity with a peel technique. The inferior capsule was released and the humeral head was dislocated. A canal finding reamer was sent down the center of the humeral canal. Sequential reaming up to a size 8 reamer was done. Off that reamer, a proximal humeral resection guide was placed. The proximal humerus was resected at 135 of inclination and 25 of retroversion. Osteophytes were then removed and the glenoid was exposed. Time was spent doing a complete capsular and labral release. A [employer] Signature One guide was then attached onto the anterior rim of the glenoid. A 3.2 mm Steinmann pin was then placed in the reverse total shoulder arthroplasty hole. The glenoid baseplate was then reamed. The final size 25 mm large augment baseplate was then impacted in the place. A 6.5 mm central screw was then placed followed by superior and inferior locking screws. A 40 mm eccentric glenosphere was then impacted into place. Surrounding soft tissues were then injected with 100 cc an orthopedic pain control cocktail. The proximal humerus was then exposed. Sequential broaching of the humerus up to a size 8 broach was done. Off that broach a +3 offset humeral tray was trialed. The shoulder was then reduced, brought through a full range of motion, and felt to be stable. The shoulder was then dislocated and the broach was removed. The final size 8 micro press-fit humeral stem was then impacted into place. A standard humeral bearing was then snapped onto a +3 offset humeral tray. The humeral tray was then impacted onto the humeral stem. The shoulder was once again reduced, brought through a full range of motion, and felt to be stable. The subscapularis was shortened and not repairable. A dilute betadyne lavage was then done for 3 minutes. The joint was then irrigated with normal saline solution. Hemostasis was obtained. The interval was closed with 2-0 Vicryl suture. The skin was then closed with 2-0 Vicryl and fifi. A Silverlon dressing was placed and the arm was rested in a regular arm sling. She was then extubated and transferred to a hospital bed. She taken to the postanesthesia care unit in stable condition. She tolerated the procedure well. Marcial Lee PA-C, was present for the entire procedure. He was critical for patient positioning, prepping, draping, retraction exposure, wound closure and application of sterile dressing. I attest to the content of the Intraoperative Record and any orders documented therein. Any exceptions are noted below.
[2020-12-20] MEDS ORDERED: GLYCOPYRROLATE 0.2 MG/ML VIAL ONE (15:02)
[2020-12-20] MEDS ORDERED: NEOSTIGMINE METHYLSULFATE 1 MG/ML 10ML VIAL ONE (15:02)
--- NOTE | 2020-12-20 15:45 | Anesthesiology Progress Note ---
Date of Service December 20, 2020 Anesthesia Post Procedure Vital Signs Vital Signs: Temp Pulse Pulse Resp BP Pulse Ox 12/20/20 15:35 36.8 C 80 18 115/76 95 12/20/20 15:25 82 18 120/75 94 12/20/20 15:15 88 17 123/71 96 12/20/20 15:06 36.3 C L 97 H 18 143/84 H 98 12/20/20 11:59 36.6 C 97 H 20 151/87 H 94 Pain Intensity Left Shoulder: Pain Intensity: 1 Transfer of Care Handoff Completed per policy Notes Mental Status: alert / awake / arousable and participated in evaluation Patient Amnestic to Procedure: Yes Nausea / Vomiting: adequately controlled Pain: adequately controlled Airway Patency, RR, SpO2: stable & adequate BP & HR: stable & adequate Hydration State: stable & adequate Anesthetic Complications: no major complications apparent and Pt Satisfied with anesthetic care
--- NOTE | 2020-12-20 15:56 | XRay Report ---
XR shoulder LT min 2V routine CLINICAL HISTORY: Post shoulder surgery COMPARISON: Left shoulder radiographs and CT of the left shoulder November 13, 2020. FINDINGS: Alignment of the reverse total left shoulder arthroplasty is anatomic. There is no peripro sthetic fracture or unexpected radiopaque foreign body. There are skin fifi. IMPRESSION: Expected findings following total left shoulder arthroplasty. ACT 112: Negative or not required by law. Electronically signed by: Darius Lassiter M.D. 12/20/2020 3:55 PM
[2020-12-20] MEDS ORDERED: bisacodyL 10 MG SUPP PR PRN (16:18)
[2020-12-20] MEDS ORDERED: DICYCLOMINE HCL 10 MG CAP PO PRN (16:18)
[2020-12-20] MEDS ORDERED: diphenhydrAMINE Capsule 25 MG CAP PO PRN (16:18)
[2020-12-20] MEDS ORDERED: HYDROmorphone INJ 0.5 MG/0.5 ML SYR IV PRN (16:18)
[2020-12-20] MEDS ORDERED: SUMAtriptan succinate 50 MG TAB PO PRN (16:18)
[2020-12-20] MEDS ORDERED: METOCLOPRAMIDE HCL INJ 5 MG/ML 2 ML VIAL IV PRN (16:18)
[2020-12-20] MEDS ORDERED: MAGNESIUM HYDROXIDE SUSP 30 ML UDC PO PRN (16:18)
[2020-12-20] MEDS ORDERED: traMADol HCL 50 MG TABLET PO PRN (16:18)
[2020-12-20] MEDS ORDERED: NALOXONE HCL 0.4 MG/1 ML VIAL/CARP IV PRN (16:18)
[2020-12-20] MEDS ORDERED: LORazepam 1 MG TAB PO PRN (16:31)
[2020-12-20] MEDS: SODIUM CHLORIDE 0.9% 1000ML 1,000 ML IV SCH (16:33)
[2020-12-20] MEDS: KETOROLAC TROMETHAMINE 15 MG/ML VIAL IV SCH (17:26)
[2020-12-20] MEDS: DOCUSATE SODIUM 100 MG CAP PO SCH (20:47)
[2020-12-20] MEDS ORDERED: SENNA 8.6 MG TAB PO SCH (21:00)
[2020-12-20] MEDS ORDERED: LOSARTAN POTASSIUM 25 MG TAB PO SCH (21:00)
[2020-12-20] MEDS ORDERED: ASPIRIN 81 MG ECTAB PO SCH (21:00)
[2020-12-20] MEDS ORDERED: SIMVASTATIN 10 MG TAB PO SCH (21:00)
[2020-12-20] MEDS: ACETAMINOPHEN 500 MG TAB PO SCH (22:23)
[2020-12-20] MEDS: ceFAZolin 2000MG 2,000 MG/15 ML SYR IV SCH (22:23)
[2020-12-21] MEDS: KETOROLAC TROMETHAMINE 15 MG/ML VIAL IV SCH ×3 (00:52→11:40)
[2020-12-21] MEDS: SODIUM CHLORIDE 0.9% 1000ML 1,000 ML IV SCH (03:42)
[2020-12-21] MEDS: ACETAMINOPHEN 500 MG TAB PO SCH (05:46)
[2020-12-21] MEDS: ceFAZolin 2000MG 2,000 MG/15 ML SYR IV SCH (05:46)
[2020-12-21] MEDS ORDERED: dexAMETHasone 4 MG TAB PO SCH (08:00)
[2020-12-21] MEDS: DOCUSATE SODIUM 100 MG CAP PO SCH (08:33)
[2020-12-21] MEDS ORDERED: MULTIVITAMIN TAB PO SCH (09:00)
[2020-12-21] MEDS ORDERED: dilTIAZem HCL 240 MG CAPCR PO SCH (09:00)
[2020-12-21] MEDS ORDERED: LOSARTAN POTASSIUM 50 MG TAB PO SCH (09:00)
--- NOTE | 2020-12-21 09:57 | Orthopedic Progress Note ---
Date of Service December 21, 2020 Assessment & Plan (1) Status post reverse arthroplasty of left shoulder: Patient is recovering as expected up to this point. Continue with physical therapy for ambulation and ROM exercises. Orthopedically stable for discharge. Follow up in our office in two weeks. Subjective .Alejandra is a pleasant 70 year old female who is one day status post left reverse total shoulder arthroplasty. States she is experiencing no pain and her block is still in affect. She slept comfortably through the night. She has been ambulating and doing range of motion exercises with physical therapy. She has no complaints today. Review of Systems All systems reviewed & are unremarkable except as noted in HPI & below. Physical Exam . Left shoulder: Incision site appears dry with no active discharge. Dressings remained in place. Wearing sling appropriately. Median, radial, and ulnar nerves intact. Still experiencing some lingering numbness from the block. Results & Data Results & Data Laboratory Results . Diagnostic Findings . PG Care Time/CCT Total # of Minutes Spent Total Time Spent with Patient: Total time spent is greater than 50% in coordination of care (as documented) at patient's floor/unit and/or counseling patient: Coding Level of Care Code 14630 Post Operative Follow-Up Diagnoses Status post reverse arthroplasty of left shoulder Z96.612
--- NOTE | 2020-12-21 10:52 | Orthopedic Progress Note ---
Date of Service December 21, 2020 Review of Systems All systems reviewed & are unremarkable except as noted in HPI & below. Physical Exam . Results & Data Results & Data Laboratory Results . Diagnostic Findings . PG Care Time/CCT Total # of Minutes Spent Total Time Spent with Patient: Total time spent is greater than 50% in coordination of care (as documented) at patient's floor/unit and/or counseling patient: Coding
--- NOTE | 2020-12-23 14:03 | Discharge Summary ---
Date of Service December 23, 2020 Admission HPI (Per Admitting) Alejandra is a pleasant 70-year-old female who is been doing with chronic worsening left shoulder pain. X-rays and clinical examination have been diagnostic for advanced osteoarthritis of the left shoulder. I be giving her injections for years. Her symptoms are getting worse. X-rays and CT scan of her shoulder show advanced osteoarthritis with some wear of the glenoid. After failing conservative treatment, she has elected to proceed with a left reverse shoulder arthroplasty.. Admission Exam (Per Admitting) Physical examination of her left shoulder, she has decreased range of motion. She has 5 5 motion of the full can test and external rotation. She has crepitus throughout range of motion.. Principal Diagnosis Same as "Discharge Diagnosis" noted below under Discharge Instructions. Discharge Data Procedures Performed Operation Date: 12/20/20 13:20 Actual Procedures p Total Shoulder Arthroplasty Reverse(Left) - Marcial Morales DO Ordered Studies 12/20/20 05:00 US - OR guided needle placemen Routine Hospital Course (1) Status post reverse arthroplasty of left shoulder: On December 20, 2020 Alejandra arrived at [facility] and underwent a left reverse shoulder replacement without complication. She had a general anesthetic and a left interscalene nerve block. Postoperatively she was placed in a sling and transferred to the general orthopedic floors. Her hospital course was uneventful. On postop day #1 her vital signs were stable and her pain was well controlled. She was able to participate well with physical therapy doing ambulation and range of motion exercises. She was then discharged to home. She will follow with orthopedics in 2 weeks. PG Care Time/CCT Total # of Minutes Spent Total Time Spent with Patient: Total time spent is greater than 50% in coordination of care (as documented) at patient's floor/unit and/or counseling patient: Discharge Plan Discharge Items Patient Disposition: Home - Self-Care Reason For Visit: Left Shoulder Degenerative Joint Disease Discharge Diagnosis: Left reverse shoulder replacement Activity: As commented below Non-emergency contact: Surgeon Call non-emergency contact if: your wound has increased redness and your wound has increased drainage Follow-up/Referrals: Rishi Kang MD [Primary Care Provider] - Diet: Regular Addtl Attending Provider Instructions: Activity and Therapy Recommendations: * If you are using [facility] then therapy will be provided at your home until they feel you have accomplished all of your goals. * If you are using [facility] then Physical Therapy will be provided until they feel you are ready to start Outpatient Physical Therapy. * If you are not using home therapy then Outpatient Physical Therapy should start about 3-5 days from your day of surgery. Therapy will last about 8-12 weeks * Wear your sling for 3 weeks, unless otherwise instructed. You may remove your sling to shower and to dress, but otherwise, you should be in your sling at all times, including while sleeping * The shoulder replacement is very stable and you can use your hand while in the sling * You were shown a series of exercises in the hospital. Do these exercises daily including the exercises you were shown in physical therapy. Medications: * Narcotic You will likely be sent home from the hospital with a prescription for the narcotic pain medication that worked best throughout your stay. * Other medications may be prescribed for specific circumstances. If you have any questions, please call the office at . * Resume previous home medications unless otherwise instructed Dressing Care: Leave the Silverlon dressing in place for 7 days. After 7 days you may remove the dressing. If the incision is not draining then you may leave the fifi open to air. If there is a little bit of drainage or if the fifi are getting stuck on your clothing then cover the incision with a dry dressing. The fifi will be removed at your 2 week follow-up appointment. Showering: You may shower with the Silverlon dressing in place. Do not let the shower spray hit the dressing directly. Pat the Silverlon dressing dry. If the dressing becomes wet underneath, then simply remove the dressing. Keep the incision dry until you are 7 days out from the day of surgery. After 7 days you may remove the Silverlon dressing and shower with the fifi exposed. Let soapy water run over the fifi and pat them dry. Do not scrub or soak the incision. Things To Watch For: * Drainage from the incision site that occurs more than one week after your surgery. * Increased redness at the incision site. * Fever above 102 degrees Fahrenheit. * Unusual chest pain or shortness of breath. * Call [facility] at with any of the above pro blems Follow-Up Visit: Follow-up with Dr. Morales's PA (Marcial Lee) 2-3 weeks after your day of surgery. He will remove your fifi and answer any questions. If you have any additional questions or concerns, Dr Morales is usually in the office at the same time and will be available An appointment was probably scheduled when you signed-up for surgery in the office. If you have any questions call More detailed instructions as well as Frequently Asked Questions were provided in a folder by our office when you signed-up for surgery. Please review these instructions when you get home. If you have any further questions or concerns, please feel free to call the office at [phone] Pending Studies at Discharge: No Stand-Alone Forms: My [facility], Opioid Pain Management, Smoking Cessation Medications and DC Order Prescriptions: Continued aspirin 81 mg tablet,delayed release (DR/EC) 81 mg PO HS RF: 0 omeprazole 20 mg capsule,delayed release(DR/EC) 20 mg PO QAM RF: 0 losartan 50 mg tablet 50 mg PO QAM RF: 0 diltiazem HCl [Cardizem CD] 240 mg capsule,extended release 24hr 240 mg PO QAM RF: 0 celecoxib [Celebrex] 200 mg capsule 200 mg PO BID RF: 0 cholecalciferol (vitamin D3) 25 mcg (1,000 unit) capsule 25 mcg PO QAM RF: 0 omega-3 fatty acids [Fish Oil Concentrate] 1,000 mg capsule 1,000 mg PO QAM RF: 0 simvastatin 10 mg Tablet 10 mg PO HS RF: 0 sumatriptan succinate [Imitrex] 50 mg Tablet 50 mg PO DAILY PRN (Reason: migrianes) RF: 0 diphenhydramine HCl [Benadryl] 25 mg Capsule 25 mg PO TID PRN (Reason: itch/runny nose) RF: 0 losartan 25 mg Tablet 25 mg PO HS RF: 0 lorazepam 1 mg Tablet 1 mg PO TID PRN (Reason: Anxiety) RF: 0 multivitamin Capsule 1 cap PO QAM RF: 0 dicyclomine 10 mg Capsule 10 mg PO BID PRN (Reason: Stomach Upset) RF: 0 Calcium + D 1 tab PO QAM RF: 0 No Action tramadol 50 mg tablet 50 mg PO Q6H PRN (Reason: pain) Qty: 30 RF: 0 Discharge Orders: Discharge Order (Routine); Ordered 12/21/20 Ordered By: Aaron Alonso/Other Patient Handouts: DVT Post Op Prevention Admission Data Admit Date/Time: 12/20/20 15:09 Attending Provider: Marcial Morales Admit Provider: Marcial Morales Primary Care Provider: Rishi Kang Other Interventions: Discharge Summary Assessment (RN) Last Done: 12/21/20 10:15
== END 2020-12-21 12:28 | disposition home or self-care (01) ==
LOC: 3E 10:58 → ASU 10:58